=== PATIENT | male | born 1970 ===

== ENCOUNTER 2019-07-11 12:03 | Day surgery (SDC) | payer OTHER ==
[~2019-07-11 12:03] MED LIST: Buffered Lidocaine 1% SYRIN* 1 ML/SYRINGE INTRADERM ONE; Dexamethasone IV* 4 MG/ML 1 ML (4 MG) IV SLOW PU ONE; Dexamethasone IV* 4 MG/ML 1 ML (4 MG) ONE; DiMENhydriNATE IV* 50 MG/ML VIAL IV PUSH PRN; Famotidine IV* 10 MG/ML 2 ML (20 mg) IV ONE; Famotidine IV* 10 MG/ML 2 ML (20 mg) ONE; HYDROcodone/ACETAMIN 5-325 MG* 1 TAB PO PRN; Ketorolac INJ* 30 MG/ML 1 ML VIAL IV PRN; Lactated Ringers 1000 ML Bag* 1,000 ML IV SCH; Naloxone* 0.4 MG/ML 1 ML VIAL IV PRN; fentaNYL* 50 MCG/ML 2 ML VIAL (100 MCG VIAL) IV PRN; oxyCODONE/Acetamin 5/325 MG* TAB PO PRN
[2019-07-11] MEDS ORDERED: Clindamycin 900 MG/D5W BAG(*) 900 MG/50 ML BAG IVPB ONE (12:11)
[2019-07-11] MEDS ORDERED: Labetalol IV* 5 MG/ML 20 ML VIAL ONE (12:51)
[2019-07-11] MEDS ORDERED: Propofol* 10 MG/ML 20 ML BTL ONE (13:04)
[2019-07-11] MEDS ORDERED: Midazolam* 1 MG/ML 5 ML VIAL (5 MG) ONE (13:04)
[2019-07-11] MEDS ORDERED: fentaNYL* 50 MCG/ML 2 ML VIAL (100 MCG VIAL) ONE ×4 (13:04→14:39)
[2019-07-11] MEDS ORDERED: Lidocaine 2% PF * 5 ML VIAL ONE (13:04)
[2019-07-11] MEDS ORDERED: Bupivacaine 0.25% SDV* 30 ML ONE (13:08)
[2019-07-11] MEDS ORDERED: Phenylephrine 40 MCG/ML SYRINGE ONE (13:57)
[2019-07-11] MEDS ORDERED: EPHEDrine (Pressors)* 50 MG/ML VIAL ONE (14:01)
[2019-07-11] MEDS ORDERED: Ondansetron INJ* 2 MG/ML VIAL ONE (14:58)
[2019-07-11] MEDS ORDERED: Levalbuterol 0.63MG/3ML NEB* UNIT OF USE INH ONE ×2 (15:50→15:52)
[2019-07-11] MEDS ORDERED: Ketorolac INJ* 30 MG/ML 1 ML VIAL ONE (16:07)
[2019-07-11 17:33] VITALS: BP 146/94
--- NOTE | 2019-07-11 21:40 | OP ---
DATE OF OPERATION: 07/11/19 - [facility] DATE OF : 66 SURGEON: Kvng Williamson MD. TOOL DESIGN DRAFTSPERSON: ANISH Parrish. An assistant branch operations manager was needed for the entirety of the procedure to aid in positioning of the arm and retraction. ANESTHESIOLOGIST: Dr. Lee. ANESTHESIA: General. PRE-OP DIAGNOSES: 1. Left carpal tunnel syndrome. 2. Left ulnar nerve subluxation and compression. POST-OP DIAGNOSES: 1. Left carpal tunnel syndrome. 2. Left ulnar nerve subluxation and compression. OPERATIVE PROCEDURES: 1. Left endoscopic carpal tunnel release. 2. Left ulnar nerve decompression with transmuscular transposition at the elbow. INDICATIONS: Jose Juan has pretty significant ulnar nerve and carpal tunnel symptoms. We had talked about his treatment options. He wanted to proceed with surgery. ESTIMATED BLOOD LOSS: 2 mL. COMPLICATIONS: None. FINDINGS: See above and below. DESCRIPTION OF PROCEDURE: Jose Juan was seen in the preoperative holding area. The correct site, side, and procedures were identified. We came back to the operating room, where the arm was exsanguinated and the tourniquet inflated. I first made a 1 cm transverse incision just ulnar to the palmaris longus tendon. Dissection was carried down and the distal antebrachial fascia was split transversely with the tenotomy scissors bluntly. A 2-prong skin hook was placed. I dilated and dried out the carpal tunnel. The [employer] endoscopic carpal tunnel system was then introduced. When I had it in the appropriate location, I elevated the blade and then the release was carried out from distal to proximal. Once I had confirmed the release distally, I used the tenotomy scissors to release the distal antebrachial fascia proximally. At this point, everything was looking very good. The wounds were irrigated out. Skin was closed with a 4-0 Prolene suture. I then abducted and externally rotated the arm. The shoulder was quite stiff. The elbow was bolstered up with some towels. I made a curvilinear incision over the elbow centered over the cubital tunnel. Dissection was carried down. Full- thickness flaps were raised. There was a very prominent medial antebrachial cutaneous nerve that was crossing over just at the medial epicondyle and running just anterior to the ulnar nerve. This was dissected free and retracted posteriorly. I released Calixto's ligament. I released the fascia overlying the ulnar nerve proximally up past the arcade of [place]. I released the superficial FCU fascia. I split the two heads of the FCU and released the subfascial layer distally, taking care to preserve the motor branches. At this point, the ulnar nerve was pretty obvious that it had been kinked to just where it was subluxated and perched up on the medial epicondyle; and as I dove down around the FCU fascia, it was kinked. After I released the fascia, it moved to the transposed position. A vessel loop was placed and neurolysis was performed. The medial intermuscular septum was excised. The leading edge of the FCU fascia and some of the musculature was excised. I went ahead and raised stepcut fascial flaps off the flexor pronator fascia and the muscular septi were excised. I then transposed the nerve up onto the muscular bed. The 2 fascial flaps were sewn end-to-end creating a sleeve to hold the nerve up in the transposed position. At this point, everything was looking very good. The medial antebrachial nerve went uninjured throughout the procedure. The nerve was sitting nicely in a transposed position. Everything was looking very good at this point. Hemostasis had been obtained with the bipolar and Bovie throughout the procedure. I double checked to make sure it had hemostasis. The wound was irrigated out. The subcutaneous tissue was reapproximated with 3-0 Vicryl. The skin was closed with 3-0 Monocryl and Steri- Strips. Marcaine 0.25% was infiltrated around all of the wounds. The wounds were dressed with 4x4s, sterile Webril, and ABD at the elbow and then a long arm splint with a lateral buttress was applied. He was taken to the recovery room in stable condition. [id number]/[facility] #: [id number] ROSS
== END 2019-07-11 17:11 | disposition home or self-care (01) ==
LOC: OREAST 12:03
PROVIDERS: ATTEND Orthopaedic Surgery Hand Surgery
DX: G56.02 Carpal tunnel syndrome, left upper limb (principal); G56.22 Lesion of ulnar nerve, left upper limb; E78.5 Hyperlipidemia, unspecified; K21.9 Gastro-esophageal reflux disease without esophagitis; Z72.0 Tobacco use; Z88.0 Allergy status to penicillin
CPT/HCPCS: J1100; J1885; J2250; J2405; J2704; J3010; J3490